=== PATIENT | female | born 1985 | race Caucasian/White ===

== ENCOUNTER → 2019-03-12 | Outpatient (CLI) | payer OTHER ==
--- NOTE | 2019-03-12 15:07 | RAD ---
EXAM: Pelvic sonogram. HISTORY: Right lower quadrant pain. IUD. TECHNIQUE: Sonographic imaging of the pelvis was performed. COMPARISON: None. FINDINGS: The uterus measures 7.8 x 5.9 x 4.6 cm. There is an IUD within the endometrial cavity. The endometrial stripe measures 8 mm. The ovaries are normal in size and demonstrate normal blood flow. There is a small amount of pelvic free fluid. IMPRESSION: 1. IUD in expected position. 2. Small amount of nonspecific pelvic free fluid. Electronically signed by: Sariah Velázquez MD (03/12/2019 3:04 PM) [place] [id number]
== END | disposition home or self-care (01) ==
LOC: US 13:43
PROVIDERS: ATTEND Obstetrics & Gynecology
DX: R10.31 Right lower quadrant pain (principal)
CPT/HCPCS: 76856

== ENCOUNTER 2019-04-11 01:20 | Emergency (ER) | payer OTHER ==
--- NOTE | 2019-04-11 01:47 | PHYS DOC ---
Adult General Chief Complaint Chief Complaint: FEMALE UROGENTIAL PROBLEMS.. ".. I got severe lower abd. cramping.. like a bad perioid... It is worse tonight after sexual intercourse.... It even hurts in my rectal area..." [facility] HPI Patient is a 33 year old female dependent who presents with lower abdomen and pelvic discomfort. She states she's been having lower abdomen cramping since placement of the IUD on . Patient recently has come off control pills and has had more painful periods. Patient denies previous history of endometriosis or ovarian cysts. She denies any trauma. No history of vaginal discharge. Some mild spotting tonight. Patient history of cervical cancer and underwent a LEEP procedure. Patient denies any history of STDs. Has had 12 lifetime sexual partners. No history of travel. No specific ill contacts. Patient normally follows at [facility] for care. She is concerned that the IUD has been become misplaced. Review of Systems Review of Systems Constitutional: Denies fever or chills [] Eyes: Denies change in visual acuity, redness, or eye pain [] HENT: Denies nasal congestion or sore throat [] Respiratory: Denies cough or shortness of breath [] Cardiovascular: No additional information not addressed in HPI [] GI: Complaints of lower abdominal pain and cramping. Denies vaginal discharge. Does have complaints of, nausea,. Denies vomiting, bloody stools or diarrhea [] : Denies dysuria or hematuria [] Musculoskeletal: Denies back pain or joint pain [] Integument: Denies rash or skin lesions [] Neurologic: Denies headache, focal weakness or sensory changes [] Endocrine: Denies polyuria or polydipsia [] All other systems were reviewed and found to be within normal limits, except as documented in this note. Family History Family History Noncontributory to presentation Current Medications Current Medications See nursing for home meds Allergies Allergies Allergies Coded Allergies Type Severity Reaction Last Updated Verified No Known Drug Allergies 04/11/19 No Physical Exam Physical Exam Constitutional: Well developed, well nourished, moderate acute distress, non- toxic appearance. [] HENT: Normocephalic, atraumatic, bilateral external ears normal, oropharynx moist, no oral exudates, nose normal. [] Eyes: PERRLA, EOMI, conjunctiva normal, no discharge. [] Neck: Normal range of motion, no tenderness, supple, no stridor. [] Cardiovascular:Heart rate regular rhythm, no murmur [] Lungs & Thorax: Bilateral breath sounds clear to auscultation [] Abdomen: Bowel sound decreased. , generalized tenderness, no masses, no pulsatile masses. Distended. Some rebound to lower pelvis. Pelvic Exam - IUD appears in place.. Scar os. Mild cervical motion tenderness. Hard stool in vault. Skin: Warm, dry, no erythema, no rash. [] Back: No tenderness, no CVA tenderness. [] Extremities: No tenderness, no cyanosis, no clubbing, ROM intact, no edema. Mild bilateral psoas on heeltap Neurologic: Alert and oriented X 3, normal motor function, normal sensory function, no focal deficits noted. [] Psychologic: Affect anxious, judgement normal, mood normal. [] EKG EKG [] Radiology/Procedures Radiology/[place] [address] IMAGING REPORT Signed PATIENT: LAKIA MITCHELL ACCOUNT: [id number] : 1985 LOCATION: ER AGE: 33 SEX: F EXAM STATUS: REG ER ORD. PHYSICIAN: CAILIN SAM MD REASON: severe lower abd. pain, more rt. with cramping PROCEDURE: ACUTE ABDOMEN SERIES Study: ACUTE ABDOMEN SERIES Indication: Severe lower abdominal pain. Comparison: None. Findings: Unremarkable cardiomediastinal silhouette and lungs. No free air under the diaphragm. Impression: Normal appearance of the chest. Electronically signed by: CHENCHO RAY MD (04/11/2019 5:07 AM) [facility] DICTATED AND SIGNED BY: CHENCHO RAY MD DATE: 04/11/19 0503 CC: SEDRICK LEY; CAILIN SAM MD ~ [][address] [address] IMAGING REPORT Signed PATIENT: LAKIA MITCHELL ACCOUNT: [id number] : 1985 LOCATION: ER AGE: 33 SEX: F EXAM STATUS: REG ER ORD. PHYSICIAN: CAILIN SAM MD REASON: severe lower abd. pain, cramping PROCEDURE: CT ABD PELV W/ORAL&IV CONTRAST Study: CT abdomen/pelvis with intravenous contrast Indication: Severe lower abdominal pain. Cramping. Comparison: None. Technique: Helical CT imaging performed of the abdomen and pelvis after the intravenous administration of 74 cc contrast. Sagittal and coronal reformats were obtained. One or more of the following individualized dose reduction techniques were utilized for this examination: 1. Automated exposure control 2. Adjustment of the mA and/or kV according to patient size 3. Use of iterative reconstruction technique. Findings: The appearance of the liver, gallbladder, pancreas, spleen and adrenal glands is within normal limits though there is borderline prominence of the spleen. Mild intrarenal and proximal ureteral collecting system prominence. No nephrolithiasis. The more distal ureters are normal in caliber. Unremarkable urinary bladder. Intrauterine contraceptive device. The appearance of the uterus by CT is within normal limits. Left adnexal cystic focus as seen on image 62 series 3 measures up to 4.3 cm. Unremarkable right adnexa. Mildly constipated state. The appendix is not well seen. Unremarkable stomach noting partial collapse. Contrast passes through much of the small bowel and there are no findings to suggest obstruction. Unremarkable major vasculature. Hyperdense pelvic free fluid as well as hyperdense fluid scattered throughout the abdomen such as adjacent to the right hepatic lobe. Around the inferior margin the spleen and seen at the right more so than left paracolic gutters. A serpiginous increased density focus within the fluid within the pelvis is likely a prominent vein. Unremarkable body wall soft tissues. No acute osseous abnormality. Impression: 1. Moderate volume hyperdense fluid most compatible with hemorrhage scattered throughout the abdomen and pelvis but greatest in volume within the deep pelvis. Left ovarian cystic structure is identified measuring up to 4.3 cm. The favored etiology of this fluid is from ovarian cyst rupture as no other potential etiology is identified. 2. Intrauterine contraceptive device without pelvic scanning features by CT. Electronically signed by: CHENCHO RAY MD (04/11/2019 4:48 AM) [facility] DICTATED AND SIGNED BY: CHENCHO RAY MD DATE: 04/11/19 0448 CC: SEDRICK LEY; CAILIN SAM MD ~ Course & Med Decision Making Course & Med Decision Making Pertinent Labs and Imaging studies reviewed. (See chart for details) Pt.. stay on clear fluid diet if continued abd. pain. Take tylenol and ibuprofe n for pain. Follow up with [facility]. Marked pain may take Vicoprofen. Followup pending cultures. Must have reexam if no improvement. Pelvic rest. Appendix not well seen on CT. Impression: 1. Abdomen Pain 2. Ovarian Cyst 3. Constipation 4. Hx HPV [] Dragon Disclaimer Dragon Disclaimer This electronic medical record was generated, in whole or in part, using a voice recognition dictation system. Departure Departure: Disposition: HOME/RESIDENCE PRIOR TO ADM Condition: STABLE Referrals: SEDRICK LEY (PCP) Scripts Hydrocodone/Ibuprofen (HYDROCODONE-IBUPROFEN 7.5-200 ) 1 Each Tablet 1 TAB PO PRN Q6HRS PRN for PAIN, #30 TAB 0 Refills Prov: CAILIN SAM MD 04/11/19 Dragmichele Disclaimer This chart was dictated in whole or in part using Voice Recognition software in a busy, high-work load, and often noisy Emergency Department environment. It may contain unintended and wholly unrecognized errors or omissions. CAILIN SAM MD Apr 11, 2019 01:47
[2019-04-11] MEDS ORDERED: FAMOTIDINE 20 MG/2 ML VIAL IVP ONE (02:00)
[2019-04-11] MEDS ORDERED: ONDANSETRON PF 4 MG/2 ML VIAL. IVP ONE (02:00)
[2019-04-11] MEDS ORDERED: IV RINGERS SOLUTION,LACTATED 1,000 ML IV SCH (02:00)
[2019-04-11 02:24] LABS: U PREG PATIENT NEGATIVE (NEG)
[2019-04-11 02:32] LABS: BACTERIA,URINE 0 /HPF (0-FEW); BILIRUBIN,URINE NEG (NEG); CLARITY,URINE CLEAR; COLOR,URINE YELLOW; GLUCOSE,URINE NEG (NEG); NITRITE,URINE NEG (NEG); RBC,URINE 0 /HPF (0-2); SQUAMOUS EPITHELIAL CELL,UR OCC /LPF; UROBILINOGEN,URINE 0.2 mg/dL (0.2 mg/dL); WBC,URINE OCC /HPF (0-4)
[2019-04-11 02:44] LABS: BASO # 0.1 x10^3/uL (0.0-0.2); BASO % 1 % (0-3); EOS # 0.2 x10^3/uL (0.0-0.7); EOS % 3 % (0-3); HEMATOCRIT 43.9 % (36.0-47.0); HEMOGLOBIN 15.3 g/dL (12.0-15.5); LYMPH # 2.4 x10^3/uL (1.0-4.8); LYMPH % 32 % (24-48); MEAN CORPUSCULAR HEMOGLOBIN 32 pg (25-35); MEAN CORPUSCULAR HGB CONC 35 g/dL (31-37); MEAN CORPUSCULAR VOLUME 91 fL (79-100); MONO # 0.5 x10^3/uL (0.0-1.1); MONO % 7 % (0-9); NEUT # 4.4 x10^3uL (1.8-7.7); NEUT % 58 % (31-73); PLATELET COUNT 183 x10^3/uL (140-400); RED BLOOD COUNT 4.85 x10^6/uL (3.50-5.40); RED CELL DISTRIBUTION WIDTH 12.4 % (11.5-14.5); WHITE BLOOD COUNT 7.6 x10^3/uL (4.0-11.0)
[2019-04-11 03:00] LABS: CALCIUM 8.6 mg/dL (8.5-10.1); CREATININE 0.8 mg/dL (0.6-1.0); GFR 83.7
[2019-04-11] MEDS ORDERED: CONTRAST GIVEN MC PRN (03:00)
[2019-04-11 03:05] LABS: DIRECT BILIRUBIN 0.1 mg/dL (0.0-0.2); TOTAL BILIRUBIN 0.4 mg/dL (0.2-1.0); TOTAL PROTEIN 7.2 g/dL (6.4-8.2)
[2019-04-11 03:07] LABS: POTASSIUM 3.8 mmol/L (3.5-5.1)
[2019-04-11] MEDS ORDERED: IOHEXOL 300 MG/ML 75 ML VIAL. IV ONE (03:15)
[2019-04-11] MEDS ORDERED: KETOROLAC 30 MG/ML VIAL. IVP ONE (03:15)
[2019-04-11] MEDS ORDERED: IOHEXOL 240 MG/ML 50ML VIAL. PO ONE (03:15)
--- NOTE | 2019-04-11 04:51 | RAD ---
Study: CT abdomen/pelvis with intravenous contrast Indication: Severe lower abdominal pain. Cramping. Comparison: None. Technique: Helical CT imaging performed of the abdomen and pelvis after the intravenous administration of 74 cc contrast. Sagittal and coronal reformats were obtained. One or more of the following individualized dose reduction techniques were utilized for this examination: 1. Automated exposure control 2. Adjustment of the mA and/or kV according to patient size 3. Use of iterative reconstruction technique. Findings: The appearance of the liver, gallbladder, pancreas, spleen and adrenal glands is within normal limits though there is borderline prominence of the spleen. Mild intrarenal and proximal ureteral collecting system prominence. No nephrolithiasis. The more distal ureters are normal in caliber. Unremarkable urinary bladder. Intrauterine contraceptive device. The appearance of the uterus by CT is within normal limits. Left adnexal cystic focus as seen on image 62 series 3 measures up to 4.3 cm. Unremarkable right adnexa. Mildly constipated state. The appendix is not well seen. Unremarkable stomach noting partial collapse. Contrast passes through much of the small bowel and there are no findings to suggest obstruction. Unremarkable major vasculature. Hyperdense pelvic free fluid as well as hyperdense fluid scattered throughout the abdomen such as adjacent to the right hepatic lobe. Around the inferior margin the spleen and seen at the right more so than left paracolic gutters. A serpiginous increased density focus within the fluid within the pelvis is likely a prominent vein. Unremarkable body wall soft tissues. No acute osseous abnormality. Impression: 1. Moderate volume hyperdense fluid most compatible with hemorrhage scattered throughout the abdomen and pelvis but greatest in volume within the deep pelvis. Left ovarian cystic structure is identified measuring up to 4.3 cm. The favored etiology of this fluid is from ovarian cyst rupture as no other potential etiology is identified. 2. Intrauterine contraceptive device without pelvic scanning features by CT. Electronically signed by: CHENCHO RAY MD (04/11/2019 4:48 AM) [facility]
[2019-04-11] MEDS ORDERED: HYDR-1179 PO (05:07)
--- NOTE | 2019-04-11 05:10 | RAD ---
Study: ACUTE ABDOMEN SERIES Indication: Severe lower abdominal pain. Comparison: None. Findings: Unremarkable cardiomediastinal silhouette and lungs. No free air under the diaphragm. Impression: Normal appearance of the chest. Electronically signed by: CHENCHO RAY MD (04/11/2019 5:07 AM) [facility] [place]
[2019-04-11 05:22] VITALS: BP 117/63
[2019-04-11] MEDS ORDERED: MAGNESIUM HYDROXIDE 2,400 MG/30 ML ORAL.SUSP. PO ONE (05:30)
[2019-04-17 08:08] LABS: CHLAMYDIA PROBE Negative (Negative)
== END 2019-04-11 05:25 | disposition home or self-care (01) ==
LOC: ER 01:20
DX: N83.202 Unspecified ovarian cyst, left side (principal); K59.00 Constipation, unspecified; Z85.41 Personal history of malignant neoplasm of cervix uteri
CPT/HCPCS: 74022; 74177; 80048; 80076; 81001; 81025; 83690; 85025; 85610; 85730; 86592; 86705; 86709; 86803; 87340; 87491; 87591; 96374; 99285; J1885; J7120; Q0111; Q9966; Q9967; 36415

== ENCOUNTER 2019-04-13 22:47 | Emergency (ER) | payer OTHER ==
[~2019-04-13] VITALS: Ht 165.1 cm; Wt 56.7 kg
[~2019-04-13 22:47] MED LIST: HYDR-1179 PO
--- NOTE | 2019-04-13 22:57 | PHYS DOC ---
Past History Past Medical History: Ovarian Cyst, Other Additional Past Medical Histor: CERVICAL CANCER, HPV Past Surgical History: Tonsillectomy, Other Additional Past Surgical Histo: UTERINE POLPS REMOVAL, 2X DIC Alcohol Use: Occasionally Drug Use: None Adult General Chief Complaint Chief Complaint: ".. I am still having abdomen pain.. but now I have a fever..." HPI HPI Patient is a 33 year old female dependent who presents with above hx and complaints of continue abd. pain and now fever. Patient seen on 04/11/2019 with abdomen pain( see prior ED report). At that time was found to have some free fluid in abdomen felt to be secondary to a ruptured ovarian cysts and constipation. Cultures were taken at that time and results are still pending. Patient relates her abdomen pain seemed to increase after placement of an IUD. Patient initial onset of severe pain occurred after sexual intercourse. Patient has approximately 12 lifetime sexual partners. Gravid two and term two. Patient has history of HPV and a LEEP procedure for her cervical dysplasia. No recent travel. No specific ill contacts. Patient still localized for pain to lower pelvic area. CT on the visit on 04/11. Appendix areas was not visualized well .. Patient normally follows at [place]. Review of Systems Review of Systems Constitutional: Complaints of fever Eyes: Denies change in visual acuity, redness, or eye pain [] HENT: Denies nasal congestion or sore throat [] Respiratory: Denies cough or shortness of breath [] Cardiovascular: No additional information not addressed in HPI [] GI: Complaints of abdominal pain, . Denies Nausea, vomiting, bloody stools or diarrhea [] : Denies dysuria or hematuria [] Musculoskeletal: Denies back pain or joint pain [] Integument: Denies rash or skin lesions [] Neurologic: Denies headache, focal weakness or sensory changes [] Endocrine: Denies polyuria or polydipsia [] All other systems were reviewed and found to be within normal limits, except as documented in this note. Family History Family History Noncontributory Current Medications Current Medications See nursing for home meds Allergies Allergies Allergies Coded Allergies Type Severity Reaction Last Updated Verified No Known Drug Allergies 04/11/19 No Physical Exam Physical Exam Constitutional: Well developed, well nourished, moderate distress, non-toxic appearance. [] HENT: Normocephalic, atraumatic, bilateral external ears normal, oropharynx moist, no oral exudates, nose normal. [] Eyes: PERRLA, EOMI, conjunctiva normal, no discharge. [] Neck: Normal range of motion, no tenderness, supple, no stridor. [] Cardiovascular:Heart rate regular rhythm, no murmur [] Lungs & Thorax: Bilateral breath sounds equal at apex auscultation [] Abdomen: Bowel sounds decreased, soft, lower pelvic tenderness, no masses, no pulsatile masses. [] Rebound to lower pelvic- more right side. Skin: Warm, dry, no erythema, no rash. [] Back: No tenderness, no CVA tenderness. [] Extremities: No tenderness, no cyanosis, no clubbing, ROM intact, no edema. [] No psoas Neurologic: Alert and oriented X 3, normal motor function, normal sensory function, no focal deficits noted. [] Psychologic: Affect anxious, judgement normal, mood normal. [] EKG EKG [] Radiology/Procedures Radiology/Procedures [address] [address] IMAGING REPORT Signed PATIENT: LAKIA MITCHELL ACCOUNT: [id number] : 1985 LOCATION: ER AGE: 33 SEX: F EXAM STATUS: DEP ER ORD. PHYSICIAN: CAILIN SAM MD REASON: abd. pain, no improvement PROCEDURE: ACUTE ABDOMEN SERIES Study: ACUTE ABDOMEN SERIES Indication: Persistent abdominal pain. Comparison: 04/11/2019 Findings: Unremarkable lungs and cardiomediastinal silhouette. Nipple shadows. Nonobstructive bowel gas pattern. Mild volume well-formed stool scattered throughout the colon, most notable within the pelvis and at the hepatic flexure. Intrauterine contraceptive device. Impression: No acute abnormality by radiography. Electronically signed by: CHENCHO RAY MD (04/14/2019 2:58 AM) [facility] DICTATED AND SIGNED BY: CHENCHO RAY MD DATE: 04/14/19 0258 CC: SEDRICK LEY; CAILIN SAM MD ~ [][address] [place] [id number] IMAGING REPORT Signed PATIENT: LAKIA MITCHELL ACCOUNT: [id number] : 1985 LOCATION: ER AGE: 33 SEX: F EXAM STATUS: REG ER ORD. PHYSICIAN: CAILIN SAM MD REASON: IncreaseLower abd. pain, fever- Appendix not well visualize prior PROCEDURE: CT ABD PELV W/ORAL&IV CONTRAST Study: CT abdomen/pelvis with intravenous contrast Indication: Increased lower abdominal pain. Fever. Comparison: 04/11/2019 Technique: Helical CT imaging performed of the abdomen and pelvis after the intravenous administration of 75 cc contrast. Sagittal and coronal reformats were obtained. One or more of the following individualized dose reduction techniques were utilized for this examination: 1. Automated exposure control 2. Adjustment of the mA and/or kV according to patient size 3. Use of iterative reconstruction technique. Findings: Unremarkable lower lungs and visualized heart. No newly seen abnormality of the liver. Similar appearance of the gallbladder. No pancreatic abnormality. The spleen is prominent in size at 14 cm. It appears as the spleen has faintly increased in size from the prior when it measured just over 13 cm. Unremarkable adrenal glands. Symmetric renal enhancement. No hydroureteronephrosis. Mild circumferential urinary bladder wall prominence. Intrauterine contraceptive device. No newly seen uterine parenchymal abnormality. Redemonstrated left adnexal cystic focus, image 68 series 2, measuring up to 4.9 cm compared to 4.3 cm previously. No newly seen abnormality at the right adnexa. No focal abnormality of the colon. As before, the appendix is difficult to locate. The terminal ileum as seen on approximately images 62 through 64, series 2. The appendix typically originates in the region of the terminal ileum and no localized inflammation is seen at this site to suggest appendicitis. Nonobstructed small bowel. No abnormality of the stomach. Hyperdense free fluid is again seen within the deep pelvis such as to the right of the left adnexal cyst on image 68 series 2. Overall the volume of free fluid has decreased and the fluid previously noted at the far inferior aspect of the right more so than left paracolic gutters is no longer visualized and there is less hyperdense free fluid along the inferior tip of the right hepatic lobe. Impression: 1. Unfortunately, the appendix is again not well visualized though note is made that there are no localized inflammatory changes at its expected location to suggest acute appendicitis. Redemonstrated hyperdense free fluid within the pelvis however the volume of free fluid has decreased from the 04/11/2019 study. 2. Left adnexal cystic focus has slightly increased in the interim now measuring up to 4.9 cm compared to 4.3 cm. This is thought to originate from the left ovary. Targeted pelvic sonography could be performed as deemed necessary. 3. Slight interval enlargement of the spleen now measuring at 14 cm compared to just over 13 cm. Electronically signed by: CHENCHO RAY MD (04/14/2019 1:33 AM) [facility] DICTATED AND SIGNED BY: CHENCHO RAY MD DATE: 04/14/19 0133 CC: SEDRICK LEY; CAILIN SAM MD ~ Course & Med Decision Making Course & Med Decision Making Pertinent Labs and Imaging studies reviewed. (See chart for details) Recommend patient stay on a clear fluid diet as long as she has abdomen pain. Consider removal of IUD since pelvic complaints of seems to have increased after its placement. Follow-up primary care. Follow-up [facility]. Tylenol and ibuprofen for pain. Consider ultrasound to evaluate ovarian cysts and follow if she elects to start back on control. Patient may be a candidate for laparoscopic evaluation. Would not resume sexual activity as long as she is having pelvic pain. Follow-up pending cultures. Return if any concerns. Patient may also be a candidate for colonoscopy. Does not appear to have a severe infection, ischemic process or surgical process since lactate is 0.5. 1. Abdomen Pain 2. Ovarian Cyst 3. Viral Syndrome 4. History of constipation- Still present 5. Hx. of Cervical Cancer- S/P LEEP [] Dragon Disclaimer Dragon Disclaimer This electronic medical record was generated, in whole or in part, using a voice recognition dictation system. Departure Departure: Disposition: HOME/RESIDENCE PRIOR TO ADM Condition: STABLE Referrals: SEDRICK LEY (PCP) Ray Disclaimer This chart was dictated in whole or in part using Voice Recognition software in a busy, high-work load, and often noisy Emergency Department environment. It may contain unintended and wholly unrecognized errors or omissions. CAILIN SAM MD Apr 13, 2019 22:56
[2019-04-13 23:11] VITALS: BP 140/83
[2019-04-13] MEDS ORDERED: CONTRAST GIVEN MC PRN (23:45)
[2019-04-13 23:52] LABS: INFLUENZA A PATIENT NEGATIVE (NEGATIVE); INFLUENZA B PATIENT NEGATIVE (NEGATIVE)
[2019-04-14] MEDS ORDERED: IV RINGERS SOLUTION,LACTATED 1,000 ML IV SCH
[2019-04-14] MEDS ORDERED: ONDANSETRON PF 4 MG/2 ML VIAL. IVP ONE
[2019-04-14] MEDS ORDERED: FAMOTIDINE 20 MG/2 ML VIAL IVP ONE
[2019-04-14] MEDS ORDERED: IOHEXOL 240 MG/ML 50ML VIAL. PO ONE (00:15)
[2019-04-14] MEDS ORDERED: IOHEXOL 300 MG/ML 75 ML VIAL. IV ONE (00:30)
[2019-04-14 00:41] LABS: BASO % 1 % (0-3); EOS # 0.1 x10^3/uL (0.0-0.7); EOS % 1 % (0-3); HEMOGLOBIN 14.1 g/dL (12.0-15.5); LYMPH # 0.8 x10^3/uL (1.0-4.8); LYMPH % 11 % (24-48); MEAN CORPUSCULAR HEMOGLOBIN 32 pg (25-35); MEAN CORPUSCULAR HGB CONC 34 g/dL (31-37); MEAN CORPUSCULAR VOLUME 92 fL (79-100); MONO # 0.6 x10^3/uL (0.0-1.1); MONO % 9 % (0-9); NEUT # 5.1 x10^3uL (1.8-7.7); NEUT % 77 % (31-73); PLATELET COUNT 139 x10^3/uL (140-400); RED BLOOD COUNT 4.43 x10^6/uL (3.50-5.40); RED CELL DISTRIBUTION WIDTH 12.4 % (11.5-14.5); WHITE BLOOD COUNT 6.6 x10^3/uL (4.0-11.0)
[2019-04-14 00:46] LABS: CALCIUM 8.9 mg/dL (8.5-10.1); CREATININE 0.9 mg/dL (0.6-1.0); POTASSIUM 3.8 mmol/L (3.5-5.1)
[2019-04-14 00:51] LABS: ALBUMIN 4.2 g/dL (3.4-5.0); DIRECT BILIRUBIN 0.2 mg/dL (0.0-0.2); TOTAL BILIRUBIN 0.7 mg/dL (0.2-1.0); TOTAL PROTEIN 7.1 g/dL (6.4-8.2)
--- NOTE | 2019-04-14 01:36 | RAD ---
Study: CT abdomen/pelvis with intravenous contrast Indication: Increased lower abdominal pain. Fever. Comparison: 04/11/2019 Technique: Helical CT imaging performed of the abdomen and pelvis after the intravenous administration of 75 cc contrast. Sagittal and coronal reformats were obtained. One or more of the following individualized dose reduction techniques were utilized for this examination: 1. Automated exposure control 2. Adjustment of the mA and/or kV according to patient size 3. Use of iterative reconstruction technique. Findings: Unremarkable lower lungs and visualized heart. No newly seen abnormality of the liver. Similar appearance of the gallbladder. No pancreatic abnormality. The spleen is prominent in size at 14 cm. It appears as the spleen has faintly increased in size from the prior when it measured just over 13 cm. Unremarkable adrenal glands. Symmetric renal enhancement. No hydroureteronephrosis. Mild circumferential urinary bladder wall prominence. Intrauterine contraceptive device. No newly seen uterine parenchymal abnormality. Redemonstrated left adnexal cystic focus, image 68 series 2, measuring up to 4.9 cm compared to 4.3 cm previously. No newly seen abnormality at the right adnexa. No focal abnormality of the colon. As before, the appendix is difficult to locate. The terminal ileum as seen on approximately images 62 through 64, series 2. The appendix typically originates in the region of the terminal ileum and no localized inflammation is seen at this site to suggest appendicitis. Nonobstructed small bowel. No abnormality of the stomach. Hyperdense free fluid is again seen within the deep pelvis such as to the right of the left adnexal cyst on image 68 series 2. Overall the volume of free fluid has decreased and the fluid previously noted at the far inferior aspect of the right more so than left paracolic gutters is no longer visualized and there is less hyperdense free fluid along the inferior tip of the right hepatic lobe. Impression: 1. Unfortunately, the appendix is again not well visualized though note is made that there are no localized inflammatory changes at its expected location to suggest acute appendicitis. Redemonstrated hyperdense free fluid within the pelvis however the volume of free fluid has decreased from the 04/11/2019 study. 2. Left adnexal cystic focus has slightly increased in the interim now measuring up to 4.9 cm compared to 4.3 cm. This is thought to originate from the left ovary. Targeted pelvic sonography could be performed as deemed necessary. 3. Slight interval enlargement of the spleen now measuring at 14 cm compared to just over 13 cm. Electronically signed by: CHENCHO RAY MD (04/14/2019 1:33 AM) [facility]
[2019-04-14 01:37] LABS: BARBITURATES NEG (NEG); BENZODIAZEPINES NEG (NEG); CANNABINOIDS NEG (NEG); COCAINE NEG (NEG); METHADONE NEG (NEG); OPIATES NEG (NEG); PHENCYCLIDINE NEG (NEG)
[2019-04-14 01:39] LABS: BACTERIA,URINE FEW /HPF (0-FEW); BILIRUBIN,URINE NEG (NEG); CLARITY,URINE CLEAR; COLOR,URINE YELLOW; GLUCOSE,URINE NEG (NEG); NITRITE,URINE NEG (NEG); UROBILINOGEN,URINE 0.2 mg/dL (0.2 mg/dL); WBC,URINE OCC /HPF (0-4)
[2019-04-14 01:40] LABS: AMPHETAMINE/METHAMPHETAMINE NEG (NEG); SQUAMOUS EPITHELIAL CELL,UR FEW /LPF
[2019-04-14] MEDS ORDERED: KETOROLAC 30 MG/ML VIAL. IVP ONE (02:15)
--- NOTE | 2019-04-14 03:01 | RAD ---
Study: ACUTE ABDOMEN SERIES Indication: Persistent abdominal pain. Comparison: 04/11/2019 Findings: Unremarkable lungs and cardiomediastinal silhouette. Nipple shadows. Nonobstructive bowel gas pattern. Mild volume well-formed stool scattered throughout the colon, most notable within the pelvis and at the hepatic flexure. Intrauterine contraceptive device. Impression: No acute abnormality by radiography. Electronically signed by: CHENCHO RAY MD (04/14/2019 2:58 AM) [facility]
== END 2019-04-14 02:05 | disposition home or self-care (01) ==
LOC: ER 22:47
DX: B34.9 Viral infection, unspecified (principal); K59.00 Constipation, unspecified; N83.202 Unspecified ovarian cyst, left side; Z85.41 Personal history of malignant neoplasm of cervix uteri
CPT/HCPCS: 36415; 74022; 74177; 80048; 80076; 80307; 81001; 81025; 83605; 83690; 85025; 85610; 85730; 87040; 87070; 87804; 87880; 96374; 99285; J1885; J7120; Q9966; Q9967

== ENCOUNTER → 2019-04-17 | Outpatient (CLI) | payer OTHER ==
[2019-04-13 23:11] VITALS: BP 140/83
--- NOTE | 2019-04-17 13:47 | RAD ---
EXAM: Pelvic sonogram. HISTORY: Pain. TECHNIQUE: Transabdominal and transvaginal sonographic imaging of the pelvis was performed. COMPARISON: 03/12/2019. FINDINGS: The uterus measures 7.4 x 4.9 x 4.9 cm. The endometrial stripe measures 4 mm. There is a hemorrhagic left ovarian cyst measuring 3.4 x 3.8 x 2.1 cm. The ovaries demonstrate normal blood flow. There is a small amount of nonspecific right adnexal free fluid. IMPRESSION: 1. 3.8 cm hemorrhagic left ovarian cyst. 2. Interval removal of an IUD. The endometrial stripe is normal in thickness. 3. Small amount of nonspecific right adnexal free fluid. Electronically signed by: Sariah Velázquez MD (04/17/2019 1:44 PM) [facility]
== END | disposition home or self-care (01) ==
LOC: US 08:50
PROVIDERS: ATTEND Nurse Practitioner Women's Health
DX: N83.202 Unspecified ovarian cyst, left side (principal)
CPT/HCPCS: 76830; 76856